=== PATIENT | male | born 1990 | race Caucasian/White ===

== ENCOUNTER 2021-01-05 01:56 | Emergency (ER) | payer BC, OTHER ==
[~2021-01-05] VITALS: Ht 190.5 cm; Wt 90.4 kg
[2021-01-05] MEDS ORDERED: ALBU8.5H PO (02:17)
[2021-01-05 04:00] LABS: BASO % 0.4 % (0.0-1.0); EOS % 0.5 % (0.0-3.0); LYMPH # 1.5 10^3/uL (1.5-5.0); LYMPH % 19.6 % (24.0-44.0); MEAN CORPUSCULAR HEMOGLOBIN 29.9 pg (27.0-33.0); MEAN CORPUSCULAR HGB CONC 33.3 g/dl (32.0-36.5); MEAN CORPUSCULAR VOLUME 89.6 fl (80.0-96.0); MONO # 0.5 10^3/uL (0.0-0.8); MONO % 6.4 % (0.0-5.0); NEUTROPHILS # 5.7 10^3/uL (1.5-8.5); NEUTROPHILS % 72.8 % (36.0-66.0); PLATELET COUNT, AUTOMATED 307 10^3/uL (150-450); RED BLOOD COUNT 5.02 10^6/uL (4.30-6.10); WHITE BLOOD COUNT 7.9 10^3/uL (4.0-10.0)
--- NOTE | 2021-01-05 04:27 | REPVR ---
PROCEDURE INFORMATION: Exam: XR Chest, 1 View Exam date and time: 01/05/2021 4:04 AM Age: 30 years old Clinical indication: Chest pain; Type not specified TECHNIQUE: Imaging protocol: XR of the chest Views: 1 view. COMPARISON: No relevant prior studies available. FINDINGS: Lungs: Unremarkable. No consolidation. Pleural spaces: Unremarkable. No pleural effusion. No pneumothorax. Heart/Mediastinum: Unremarkable. No cardiomegaly. Bones/joints: Unremarkable. IMPRESSION: Negative chest. Electronically signed by: Freddie Medley On 01/05/2021 04:27:25 AM
[2021-01-05 04:30] LABS: BLOOD UREA NITROGEN 11 MG/DL (7-18); CALCIUM LEVEL 9.3 MG/DL (8.5-10.1); CARBON DIOXIDE LEVEL 33 MEQ/L (21-32); CHLORIDE LEVEL 105 MEQ/L (98-107); CK-MB VALUE MASS < 1.0 NG/ML (<3.6); CPK CREATINE PHOSPHOKINASE 140 U/L (39-308); CREATININE FOR GFR 1.08 MG/DL (0.70-1.30); FREE T4 1.08 NG/DL (0.76-1.46); GLOMERULAR FILTRATION RATE > 60.0 (>60); GLUCOSE, FASTING 81 MG/DL (70-100); MAGNESIUM LEVEL 2.3 MG/DL (1.8-2.4); MB/CK RELATIVE INDEX 0.71 (< OR =4); POTASSIUM SERUM 4.2 MEQ/L (3.5-5.1); SODIUM LEVEL 141 MEQ/L (136-145); TROPONIN I < 0.02 NG/ML (< 0.10)
[2021-01-05 05:00] VITALS: BP 123/79
--- NOTE | 2021-01-06 08:42 | ECGEPIP ---
[facility] - ED Test Date: 2021-01-05 Pat Name: DEVONTE SHEARER Department: Room: - Gender: Male Emergency Specialist: MARY : 1990 Requested By: BLANCA Basilio Order Number: [id number] Reading MD: Syl Carbajal Measurements Intervals [place] Rate: 75 P: 59 GA: 132 QRS: 89 QRSD: 101 T: 27 QT: 358 QTc: 402 Interpretive Statements SINUS RHYTHM NO PRIOR Electronically Signed on 01-06-2021 8:42:24 EST by Syl Carbajal
== END 2021-01-05 05:28 | disposition home or self-care (01) ==
LOC: M ED 01:56
DX: R00.2 Palpitations (principal)